=== PATIENT | male | born 1955 | race Caucasian/White ===

== ENCOUNTER 2016-08-31 07:21 | Day surgery (SDC) | payer BC ==
[2016-08-31] MEDS ORDERED: Dextrose 5%-Lactated Ringers 1,000 ML IV SCH (08:00)
[2016-08-31] MEDS ORDERED: Propofol 200 MG/20 ML SDV ONE (08:19)
[2016-08-31] MEDS ORDERED: Midazolam 1 MG/ML 2 ML SDV ONE (08:20)
[2016-08-31] MEDS ORDERED: fentaNYL 100 MCG/2 ML SDV ONE (08:20)
[2016-08-31 11:51] VITALS: BP 134/77
--- NOTE | 2016-09-06 12:26 | OR ---
DATE OF PROCEDURE: 08/31/2016 PREOPERATIVE DIAGNOSIS: History of colon carcinoma x2. POSTOPERATIVE DIAGNOSIS: History of colon carcinoma x2. OPERATIVE PROCEDURE: Flexible sigmoidoscopy with random biopsies of the ileorectal anastomosis. ANESTHESIA: IV sedation. INDICATION FOR PROCEDURE: This is a 60-year-old status post subtotal colectomy for 2 synchronous carcinomas of the colon in 06/2003. He also had a neuroendocrine tumor of the distal pancreas, excised with means of distal pancreatectomy. 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 The plan is to proceed with a flexible sigmoidoscopy at this time with evaluation of the remaining rectum as well as ileorectal anastomosis to rule out any recurrence or new disease. Potential risks of the procedure including bleeding and perforation were discussed, and the patient wishes to proceed. DETAILS OF PROCEDURE: The patient was taken to the operating room and placed in a left lateral decubitus position. IV sedation was administered, after which the initial digital rectal exam was performed and was unremarkable. Colonoscope was then passed to the level of the rectum with retroflexion revealing uncomplicated hemorrhoidal columns. The scope was eventually passed to the level of the ileorectal anastomosis and a few centimeters in the small bowel. No abnormalities were noted. There was no stricturing or gross evidence of disease at the ileorectal anastomosis. Apart from that more distally, there is no recurrent polyp, disease, or other similar pathology seen. Multiple biopsies were obtained from the ileorectal anastomosis, more or less in a random fashion, and minimal bleeding from the biopsy sites was seen. The procedure was then concluded. The patient was taken to the recovery room in satisfactory condition. Assuming that today's biopsies do not show any significant problem, we will probably repeat the flexible sigmoidoscopy in 2 years. Josue Buchanan MD /[id number]
== END 2016-08-31 11:45 | disposition home or self-care (01) ==
LOC: JP.SDS 07:21
PROVIDERS: ATTEND Surgery
DX: K31.89 Other diseases of stomach and duodenum (principal); E11.9 Type 2 diabetes mellitus without complications; Z88.8 Allergy status to other drugs, medicaments and biological substances
CPT/HCPCS: 45380; J1642; J2250; J2704; J3010; J7042; 88305